=== PATIENT | female | born 1970 | race Asian ===

== ENCOUNTER 2016-07-30 15:21 | Emergency (ER) | payer OTHER ==
[~2016-07-30] VITALS: Ht 154.9 cm; Wt 43.6 kg
[2016-07-30 15:26] VITALS: BP 110/69
== END 2016-07-30 16:32 | disposition home or self-care (01) ==
LOC: ED 16:26
DX: S93.491A Sprain of other ligament of right ankle, initial encounter (principal); W10.9XXA Fall (on) (from) unspecified stairs and steps, initial encounter; Y93.89 Activity, other specified; Y92.89 Other specified places as the place of occurrence of the external cause; Y99.8 Other external cause status
CPT/HCPCS: 29515